=== PATIENT | male | born 1955 | race Caucasian/White ===

== ENCOUNTER → 2016-06-08 | Outpatient (CLI) | payer BC ==
[~2016-06-08] MED LIST: AMARYL1 MG PO; ASPIRIN325 MG PO; COZAAR50 MG PO; GLUCOPHAGE500 MG PO; LIPITOR20 MG PO; NORCO 325-5 MG1 TAB PO; PLAVIX75 MG PO
== END | disposition short-term general hospital (02) ==
LOC: CLVASC 11:29
DX: I73.9 Peripheral vascular disease, unspecified (principal); Z95.828 Presence of other vascular implants and grafts